=== PATIENT | female | born 1975 | race Caucasian/White ===

== ENCOUNTER → 2017-01-06 13:48 | Emergency (ER) | payer BC ==
[~2017-01-06 13:48] MED LIST: Ibuprofen TAB* 800 MG PO ONE; oxyCODONE/Acetamin 5/325 MG* TAB PO ONE
[2017-01-06 16:13] VITALS: BP 130/78
--- NOTE | 2017-01-06 18:23 | RAD ---
Indication: Right ankle injury. 3 views of the right ankle demonstrate soft tissue swelling laterally. Transverse fracture of the distal fibula is noted. Ankle mortise is intact. IMPRESSION: Fracture of the distal fibula.
--- NOTE | 2017-02-12 22:20 | ED ---
Lower Extremity - HPI Summary HPI Summary: Pt here w Rt ankle pain and swelling after tripping in the lawn today. Denies numbness, tingling, weakness but pain is significant with movement. No previous injury here. No other injuries as result of incident today. - History of Current Complaint Chief Complaint: EDExtremityLower Stated Complaint: RT ANKLE INJURY Time Seen by Provider: 01/06/17 16:49 Hx Obtained From: Patient Hx Last Menstrual Period: 05/05/16 Pain Intensity: 5 - Allergies/Home Medications Allergies/Adverse Reactions: Allergies Allergy/AdvReac Type Severity Reaction Status Date / Time Latex Allergy Mild Rash Verified 01/06/17 13:58 PMH/Surg Hx/FS Hx/Imm Hx Previously Healthy: Yes Endocrine/Hematology History: Denies: Hx Anticoagulant Therapy, Hx Blood Disorders, Hx Diabetes Cardiovascular History: Denies: Hx Hypertension, Hx Pacemaker/ICD Respiratory History: Denies: Hx Asthma Sensory History: Denies: Hx Hearing Aid Psychiatric History: Denies: Hx Panic Disorder Infectious Disease History: No Infectious Disease History: Denies: Traveled Outside the [place] in Last 30 Days - Family History Known Family History: Positive: Hypertension - Social History Lives: With Family Alcohol Use: Weekly Hx Substance Use: No Substance Use Type: Reports: None Hx Tobacco Use: No Smoking Status (MU): Never Smoked Tobacco Review of Systems Constitutional: Negative Musculoskeletal: Other - see HPI Positive: Bruising Neurological: Negative Psychological: Normal All Other Systems Reviewed And Are Negative: Yes Physical Exam Triage Information Reviewed: Yes Vital Signs On Initial Exam: Initial Vitals Temp Pulse Resp BP Pulse Ox 97.4 F 87 16 132/81 100 01/06/17 13:58 01/06/17 13:58 01/06/17 13:58 01/06/17 13:58 01/06/17 13:58 Vital Signs Reviewed: Yes Appearance: Positive: Well-Appearing, Pain Distress, Obese Skin: Positive: Warm, Dry - edema and mild ecchymosis over Rt lateral ankle -no terry tenting, no open skin Head/Face: Positive: Normal Head/Face Inspection Eyes: Positive: EOMI ENT: Positive: Hearing grossly normal Respiratory/Lung Sounds: Positive: Breath Sounds Present Cardiovascular: Positive: Pulses are Symmetrical in both Upper and Lower Extremities Musculoskeletal: Positive: Limited @ - Rt ankle w/ limited ROM d/t pain - can move toes but is painful; can move knee but limited d/t ankle pain Neurological: Positive: Normal, Sensory/Motor Intact, Alert, Oriented to Person Place, Time, CN Intact II-III Psychiatric: Positive: Anxious Procedures - Splinting Location: Rt LE Hand-Made Type: fiberglass Splint: posterior walking - with sugar tong Pre-Proc Neuro Vasc Exam: normal Post-Proc Neuro Vasc Exam: normal Diagnostics - Vital Signs Vital Signs Temp Pulse Resp BP Pulse Ox 01/06/17 19:52 18 01/06/17 18:36 16 01/06/17 16:10 98.7 F 87 16 130/78 100 01/06/17 13:58 97.4 F 87 16 132/81 100 - Laboratory Lab Statement: Any lab studies that have been ordered have been reviewed, and results considered in the medical decision making process. Re-Evaluation - Re-Evaluation First Eval Change: Unchanged Second Eval Change: Improved Lower Extremity Course/Dx - Diagnoses Provider Diagnoses: Closed fracture of distal end of right fibula Discharge - Discharge Plan Condition: Stable Disposition: HOME Prescriptions: oxyCODONE/Acetamin 5/325 MG* [Percocet 5/325 TAB*] 1 tab PO Q6H PRN #20 tab MDD 4 PRN Reason: Pain Patient Education Materials: Ankle Fracture (ED), Crutch Instructions (ED), Splint Care (ED) Forms: *Work Release Referrals: Mau Augustin MD [Medical Doctor] - Additional Instructions: Rest, ice, elevate Keep splint clean, dry and intact No weight bearing - use crutches Take ibuprofen 600mg every 6 hours with food alternating with percocet for pain Follow-up with orthopedics this week. Call tomorrow to schedule appointment. *If you develop numbness, discoloration of toes, severe pain, you may loosen SB wrap and elevate leg for 20 minutes - if no relief, return to ED
== END | disposition home or self-care (01) ==
LOC: ED 13:48
DX: S82.831A Other fracture of upper and lower end of right fibula, initial encounter for closed fracture (principal); M25.571 Pain in right ankle and joints of right foot; W01.0XXA Fall on same level from slipping, tripping and stumbling without subsequent striking against object, initial encounter; Y93.89 Activity, other specified; Y92.9 Unspecified place or not applicable
CPT/HCPCS: 99282; A9270-GY

== ENCOUNTER → 2019-06-04 14:08 | Day surgery (SDC) | payer BC ==
[~2019-06-04 14:08] MED LIST changes: +Acetaminophen IV 1GM/100ML * 100 ML ONE; +Buffered Lidocaine 1% SYRIN* 1 ML/SYRINGE INTRADERM ONE; +Bupivacaine 0.25% EPI 200,000* 30 ML SDV ONE; +Bupivacaine 0.5%* 50 ML MDV VIAL ONE; +Dexamethasone IV* 4 MG/ML 1 ML (4 MG) ONE; +DiMENhydriNATE IV* 50 MG/ML VIAL IV PUSH PRN; +HYDROmorphone INJ1* 1 MG/ML SYRINGE ONE; -Ibuprofen TAB* 800 MG PO ONE; +Ketorolac INJ* 30 MG/ML 1 ML VIAL ONE; +Lactated Ringers 1000 ML Bag* 1,000 ML IV SCH; +Metoclopramide IV* 5 MG/ML 2 ML VIAL ONE; +Midazolam* 1 MG/ML 2 ML VIAL (2 MG) ONE; +Naloxone* 0.4 MG/ML 1 ML VIAL IV PRN; +Ondansetron INJ* 2 MG/ML VIAL ONE; +Rocuronium* 10 MG/ML VIAL ONE; +ceFAZolin 2 GM in NS PREMIX(*) 2 GM/100 ML BAG IVPB ONE; +fentaNYL* 50 MCG/ML 2 ML VIAL (100 MCG VIAL) ONE; +oxyCODONE TAB* 5 MG TAB PO PRN; -oxyCODONE/Acetamin 5/325 MG* TAB PO ONE
--- NOTE | 2019-06-04 18:02 | OP ---
Operative Report - Blank - Operative Report Date of Operation: 06/04/19 Note: PATIENT: Ashia Frausto DATE OF : 1975 DATE OF SURGERY: 06/04/2019 SURGEON: John Granda MD MACHINE REPAIRER MAINTENANCE: LEONARDO Felix, whos assistance was necessary for positioning, retraction, help with instrumentation, and closure. ANESTHESIOLOGIST: Dr. Heart PREOPERATIVE DIAGNOSIS: Right ankle synovitis, peroneal tenosynovitis and ankle instability POSTOPERATIVE DIAGNOSIS: Right ankle synovitis, peroneal tenosynovitis and ankle instability OPERATION: 1. Right ankle arthroscopy with extensive debridement. 2. Right peroneal tendon exploration with peroneus longus and peroneus brevis tenolysis 3. Right ankle modified Brostrom procedure lateral ligament reconstruction. ANESTHESIA: General IMPLANTS: Arthrex fibertak suture anchors TOURNIQUET TIME: Less than 2 hours with a well-padded thigh tourniquet at 250mmHg SPECIMENS: none ESTIMATED BLOOD LOSS: minimal COMPLICATIONS: none STATUS: Stable from the operating room to the recovery room and then home. INDICATIONS FOR PROCEDURE: Ashia has recurrent ankle instability and pain despite extensive nonoperative treatment. Both operative and non operative treatment alternatives were reviewed. Further, the nature and risks of surgery were reviewed in careful detail, in the office as well as the pre-operative holding area. Our discussions regarding the risks of surgery included, but were not limited to, infection, wound problems, nerve injury, neuroma, RSD, persistent symptoms, blood clot, failure of the surgery, and even the remote chance of catastrophic complication. DESCRIPTION OF PROCEDURE: The patient was seen in the preoperative holding unit and informed written consent was obtained. The appropriate extremity was marked. The patient was then brought to the operating room and carefully positioned on the operating room table. Anesthesia was induced. All bony prominences were padded with great care. A well-padded thigh tourniquet was placed. A chlorhexidine based pre- scrub was performed followed by a chloraprep prep and drape in standard sterile fashion. A surgical safety pause was then conducted in which we confirmed the appropriate patient, extremity, planned procedure, availability of equipment, indication and administration of prophylactic antibiotics, and DVT prophylaxis in the form of a compression boot on the non-surgical extremity. An Esmarch exsanguination of the limb was then performed and the tourniquet inflated. The leg was positioned in the noninvasive ankle arthroscopy leg hatfield setup. I began by establishing the anteromedial portal. I utilized a spinal needle for this. Great care was taken to protect the superficial neurovascular structures. Under direct visualization, I then established an anterolateral portal. Great care was taken to protect the superficial peroneal nerve. I utilized the full radius shaver to remove a considerable amount of synovitis from the anterior aspect of the ankle joint. This was carefully removed to give a nice view of the ankle joint. There was some scar tissue at the lateral gutter that was debrided with the shaver. The cartilage looked good throughout the joint. I then again utilized the full radius shaver to remove all additional debris from the ankle joint. I removed the arthroscopic equipment and closed the portals utilizing 3-0 nylon suture. I then made an approximately 8 cm incision overlying the distal fibula. This was made in line with the distal fibula and then curving anteriorly in line with the fourth ray. Dissection was carried down through the soft tissues. Superficial hemostasis was obtained. I carried the dissection down through the soft tissue to the level of the periosteum and superior peroneal retinaculum ( SPR) with care taken to protect the sural nerve, which was not visualized during the procedure. I carefully incised the SPR off of the posterior fibula to expose the peroneal tendons. Dissection of the tendons was carried distally. The tendons were explored at this time for any tears. No discrete tears were appreciated but there was a large amount of inflamed tenosynovium and a tenolysis was performed for both the peroneus brevis and peroneus longus tendons. Additionally, there was a low-lying peroneus brevis muscle belly which was debrided and excised. At this point, I carefully inspected the peroneal groove at the posterior aspect of the fibula. This was deemed to have adequate depth so the decision was made not to perform a groove deepening procedure. So at this point I carefully planned out the repair of the superior peroneal retinaculum. I then reduced the tendons and they sat nicely in the retro-fibular groove. The wound was copiously irrigated. I repaired the SPR utilizing Arthrex fibertak suture anchor and #1 Vicryl suture. I was able to pass a [place] under the repaired SPR without difficulty after the repair. I then dissected anteriorly to expose the anterolateral ankle ligaments. We protected the superficial peroneal nerve at all times, which was not visualized within our field. Once we had adequately exposed a pocket anterior to the ligaments, we sharply took the ligaments down off of the anterior and distal aspect of the fibula using a 15 blade. The inferior extensor retinaculum was exposed and protected for subsequent repair later in the procedure. I then utilized a rongeur to make a trough along the fibula to receive the reconstructed ligaments. I then fibertak suture anchors in the fibula for a repair of the lateral ligaments. These sutures were all passed with great care taken to appropriately tension both the ATFL as well as the CFL in order to get a nice tight repair. We held the ankle in a dorsiflexed and everted position while the ligaments and sutures were tied down. These held the ankle in a much improved position with excellent tension on the ligaments. We then utilized a rotational flap from the periosteum overlying the distal fibula to augment the repair. This was sewn down using a horizontal mattress stich overlying the ATFL. We further augmented the repair by bringing the inferior extensor retinaculum up to the fibula. There was a much improved anterior drawer at this point as compared to pre-operatively. The wound was copiously irrigated. At this point, a sterile dressing was applied and the ankle was splinted in a neutral position. The patient was then awakened from anesthesia and transferred to the recovery room in stable condition. There were no complications. All needle and sponge counts were correct at the end of the case. ATTESTATION: I attest I was present and scrubbed and performed the critical portions of the procedure myself. POSTOPERATIVE PLAN: The patient will remain nonweightbearing for an anticipated duration of six weeks. Follow up will be in two weeks for likely suture removal , Steri-Strip application and transition into a short leg cast.
[2019-06-04] MEDS: HYDROmorphone INJ1* 1 MG/ML SYRINGE IV PRN ×3 (18:53→19:06)
[2019-06-04 21:22] VITALS: BP 134/78
== END | disposition home or self-care (01) ==
LOC: OR 14:08
PROVIDERS: ATTEND Orthopaedic Surgery
DX: M25.371 Other instability, right ankle (principal); M76.71 Peroneal tendinitis, right leg; M65.871 Other synovitis and tenosynovitis, right ankle and foot; Z87.891 Personal history of nicotine dependence; E66.9 Obesity, unspecified
CPT/HCPCS: C1713; J0690; J1100; J1170; J1885; J2250; J2405; J2765; J3010; J3490

== ENCOUNTER 2019-11-13 21:58 | Inpatient (IN) ==
[2019-11-13] MEDS ORDERED: fentaNYL 100 mcg/2 ml 50 MCG/ML VIAL IV SLOW PU ONE ×2 (23:47→23:52)
[2019-11-13] MEDS ORDERED: Ondansetron 4 mg VIAL 2 MG/ML 2 ml VIAL IV ONE (23:51)
[2019-11-14] MEDS ORDERED: NS 0.9% 1000 ml BAG 1,000 ML IV ONE (00:05)
[2019-11-14] MEDS ORDERED: fentaNYL 100 mcg/2 ml 50 MCG/ML VIAL IV SLOW PU ONE (00:55)
[2019-11-14] MEDS ORDERED: Midazolam 10 mg/10 ml VIAL 1 mg/ml 10 ml VIAL (10 mg) IV SLOW PU ONE (01:27)
[2019-11-14] MEDS ORDERED: fentaNYL 100 mcg/2 ml 50 MCG/ML VIAL ONE (01:30)
[2019-11-14] MEDS ORDERED: Midazolam 10 mg/10 ml VIAL 1 mg/ml 10 ml VIAL (10 mg) ONE (01:30)
[2019-11-14] MEDS ORDERED: MORPHINE 10 MG IV PRN (02:08)
[2019-11-14] MEDS ORDERED: Morphine 4 MG/ML VIAL (1 ml) IV PRN (02:20)
[2019-11-14 03:55] LABS: INR 0.99 (0.82-1.09)
[2019-11-14 04:05] LABS: Albumin 3.9 g/dL (3.2-5.2); Albumin/Globulin Ratio 1.6 (1-3); BUN/Creatinine Ratio 21.4 (8-20); C Reactive Protein 8.17 mg/L (<8.01); Calcium 8.5 mg/dL (8.6-10.3); EGFR Non-African American 90.1 (>60); Globulin 2.4 g/dL (2-4); Total Bilirubin 0.2 mg/dL (0.2-1.0); Total Protein 6.3 g/dL (6.4-8.9)
[2019-11-14] MEDS ORDERED: Enoxaparin 40 MG/0.4 ML SYR SUBCUT SCH (09:00)
[2019-11-14] MEDS: oxyCODONE/Acetamin 5/325 mg TAB PO PRN ×3 (09:24→22:55)
[2019-11-14] MEDS ORDERED: diPHENhydraMINE 25 mg TAB PO PRN (09:45)
[2019-11-14] MEDS: Ondansetron 4 mg VIAL 2 MG/ML 2 ml VIAL IV PRN (13:05)
[2019-11-15] MEDS: Ondansetron 4 mg VIAL 2 MG/ML 2 ml VIAL IV PRN (03:26)
[2019-11-15] MEDS ORDERED: Midazolam 5 mg/5 ml VIAL 1 mg/ml 5 ml VIAL (5 mg) ONE (08:06)
[2019-11-15] MEDS ORDERED: ceFAZolin 2 GM PREMIX 2 GM/50 ML BAG ONE (08:07)
[2019-11-15] MEDS ORDERED: fentaNYL 100 mcg/2 ml 50 MCG/ML VIAL ONE (08:16)
[2019-11-15] MEDS ORDERED: Midazolam 2 mg/2 ml VIAL 1 mg/ml 2 ml VIAL (2 mg) ONE (08:44)
[2019-11-15] MEDS ORDERED: Propofol 10 MG/ML 20 ML BTL ONE (08:44)
[2019-11-15] MEDS ORDERED: Ketamine HCL 50 mg/ml 10 ml VIAL (500 MG) ONE (08:45)
[2019-11-15] MEDS ORDERED: Ondansetron 4 mg VIAL 2 MG/ML 2 ml VIAL IV PRN (08:56)
[2019-11-15] MEDS ORDERED: fentaNYL 100 mcg/2 ml 50 MCG/ML VIAL IV PRN (08:56)
[2019-11-15] MEDS ORDERED: Naloxone 0.4 mg VIAL 0.4 mg/ml 1 ml VIAL IV PRN (08:56)
[2019-11-15] MEDS ORDERED: HYDROmorphone 1 MG/1 ML SYRINGE IV PRN (08:56)
[2019-11-15] MEDS ORDERED: NS 0.9% 1000 ml BAG 1,000 ML IV SCH (14:45)
[2019-11-15] MEDS ORDERED: Magnesium Hydroxide LIQ 30 ML UDC ONE (14:54)
[2019-11-15] MEDS: Magnesium Hydroxide LIQ 30 ML UDC PO SCH ×2 (14:55→20:51)
[2019-11-15] MEDS: oxyCODONE/Acetamin 5/325 mg TAB PO PRN ×2 (16:02→21:55)
[2019-11-15] MEDS: ceFAZolin 1 GM* X 3 DOSES POST-OP Q8H (AddVan) IVPB SCH (16:04)
[2019-11-16] MEDS: ceFAZolin 1 GM* X 3 DOSES POST-OP Q8H (AddVan) IVPB SCH ×2 (00:01→07:33)
[2019-11-16] MEDS: oxyCODONE/Acetamin 5/325 mg TAB PO PRN ×3 (03:35→15:58)
[2019-11-16] MEDS: Ondansetron 4 mg VIAL 2 MG/ML 2 ml VIAL IV PRN (05:09)
[2019-11-16] MEDS: Magnesium Hydroxide LIQ 30 ML UDC PO SCH ×2 (07:32→21:20)
[2019-11-16] MEDS: Heparin 5000 UNITS/ML 1 mL VIAL SUBCUT SCH ×2 (13:34→21:43)
[2019-11-16 15:21] LABS: ABS Eosinophils 0.2 10^3/ul (0-0.6); ABS Lymphocytes 1.8 10^3/ul (1.0-4.8); ABS Monocytes 0.4 10^3/ul (0-0.8); Eosinophil % 2.6 %; Hematocrit 34 % (35-47); Hemoglobin 11.2 g/dL (12.0-16.0); Lymphocyte % 24.9 %; Mean Corpuscular HGB Conc 34 g/dL (31-36); Mean Corpuscular Hemoglobin 29 pg (27-31); Mean Corpuscular Volume 87 fL (80-97); Mean Platelet Volume 8.5 fL (7.4-10.4); Platelet Count 226 10^3/uL (150-450); Red Blood Count 3.86 10^6 /uL (3.70-4.87); Red Cell Distribution Width 14 % (10-15); White Blood Count 7.3 10^3/uL (3.5-10.8)
[2019-11-16 15:28] LABS: Activated Partial Thrombo Time 30.6 seconds (26.0-38.0); INR 1.01 (0.82-1.09)
[2019-11-16 15:42] LABS: EGFR African American 82.6 (>60); EGFR Non-African American 68.3 (>60)
[2019-11-17] MEDS: Heparin 5000 UNITS/ML 1 mL VIAL SUBCUT SCH ×3 (05:40→22:03)
[2019-11-17] MEDS: Magnesium Hydroxide LIQ 30 ML UDC PO SCH ×2 (07:55→19:58)
[2019-11-17] MEDS: oxyCODONE/Acetamin 5/325 mg TAB PO PRN ×2 (09:40→23:48)
[2019-11-18] MEDS: oxyCODONE/Acetamin 5/325 mg TAB PO PRN (05:47)
[2019-11-18] MEDS: Heparin 5000 UNITS/ML 1 mL VIAL SUBCUT SCH (05:48)
[2019-11-18] MEDS: Magnesium Hydroxide LIQ 30 ML UDC PO SCH (08:21)
[2019-11-18 08:41] VITALS: BP 125/82
== END 2019-11-18 10:30 | DRG 313 ==
LOC: SSU 21:58 → ED 21:58 → OBSVTOIN 11-14 03:02
PROVIDERS: ADMIT Orthopaedic Surgery; ATTEND Orthopaedic Surgery

== ENCOUNTER 2019-11-18 08:33 | Inpatient (IN) ==
[2019-11-18] MEDS ORDERED: oxyCODONE/Acetamin 5/325 mg TAB PO PRN (13:01)
[2019-11-18] MEDS: oxyCODONE/Acetamin 5/325 mg TAB PO PRN ×2 (13:43→19:45)
[2019-11-18] MEDS: Heparin 5000 UNITS/ML VIAL(*) 1 ml vial SUBCUT SCH ×2 (14:55→22:09)
[2019-11-18] MEDS ORDERED: diPHENhydraMINE 25 mg TAB PO PRN (15:55)
[2019-11-18] MEDS ORDERED: oxyCODONE SR 20 mg TAB (*) PO ONE (22:30)
[2019-11-19] MEDS: oxyCODONE/Acetamin 5/325 mg TAB PO PRN ×6 (00:06→23:58)
[2019-11-19] MEDS: Enoxaparin 40 MG/0.4 ML SYR(*) SUBCUT SCH (07:49)
[2019-11-19] MEDS ORDERED: oxyCODONE SR 20 mg TAB (*) PO SCH (22:00)
[2019-11-20] MEDS: oxyCODONE/Acetamin 5/325 mg TAB PO PRN ×5 (04:47→21:42)
[2019-11-20 05:57] LABS: ABS Eosinophils 0.3 10^3/ul (0-0.6); ABS Lymphocytes 1.8 10^3/ul (1.0-4.8); ABS Monocytes 0.5 10^3/ul (0-0.8); Eosinophil % 4.9 %; Hematocrit 34 % (35-47); Hemoglobin 11.4 g/dL (12.0-16.0); Lymphocyte % 29.1 %; Mean Corpuscular HGB Conc 34 g/dL (31-36); Mean Corpuscular Hemoglobin 29 pg (27-31); Mean Corpuscular Volume 87 fL (80-97); Mean Platelet Volume 7.7 fL (7.4-10.4); Platelet Count 275 10^3/uL (150-450); Red Blood Count 3.91 10^6 /uL (3.70-4.87); Red Cell Distribution Width 14 % (10-15); White Blood Count 6.2 10^3/uL (3.5-10.8)
[2019-11-20 06:15] LABS: Albumin 3.5 g/dL (3.2-5.2); Albumin/Globulin Ratio 1.4 (1-3); BUN/Creatinine Ratio 17.6 (8-20); Calcium 8.9 mg/dL (8.6-10.3); EGFR African American 102.2 (>60); EGFR Non-African American 84.5 (>60); Globulin 2.5 g/dL (2-4); Potassium 4.1 mmol/L (3.5-5.0); Total Bilirubin 0.3 mg/dL (0.2-1.0)
[2019-11-20] MEDS: Enoxaparin 40 MG/0.4 ML SYR(*) SUBCUT SCH (08:33)
[2019-11-20] MEDS: oxyCODONE SR 20 mg TAB (*) PO SCH ×2 (10:50→21:39)
[2019-11-20] MEDS: Magnesium Hydroxide LIQ 30 ML UDC PO PRN ×2 (12:28→20:27)
[2019-11-20] MEDS: Senna TAB 8.6 mg TAB PO PRN (20:27)
[2019-11-21] MEDS: oxyCODONE/Acetamin 5/325 mg TAB PO PRN ×4 (02:59→18:26)
[2019-11-21] MEDS: Enoxaparin 40 MG/0.4 ML SYR(*) SUBCUT SCH (08:47)
[2019-11-21] MEDS: oxyCODONE SR 20 mg TAB (*) PO SCH ×2 (08:49→21:26)
[2019-11-22] MEDS: oxyCODONE/Acetamin 5/325 mg TAB PO PRN ×6 (00:01→22:11)
[2019-11-22 06:32] LABS: Albumin 3.7 g/dL (3.2-5.2); Albumin/Globulin Ratio 1.4 (1-3); BUN/Creatinine Ratio 20.8 (8-20); Calcium 9.1 mg/dL (8.6-10.3); EGFR African American 105.5 (>60); EGFR Non-African American 87.2 (>60); Globulin 2.6 g/dL (2-4); Potassium 3.8 mmol/L (3.5-5.0); Total Bilirubin 0.4 mg/dL (0.2-1.0); Total Protein 6.3 g/dL (6.4-8.9)
[2019-11-22] MEDS: oxyCODONE SR 20 mg TAB (*) PO SCH ×2 (08:20→21:03)
[2019-11-22] MEDS: Enoxaparin 40 MG/0.4 ML SYR(*) SUBCUT SCH (08:21)
[2019-11-22] MEDS: Magnesium Hydroxide LIQ 30 ML UDC PO PRN (08:30)
[2019-11-22] MEDS: Bacitracin OINTMENT TUBE TOPICAL SCH ×2 (13:02→21:05)
[2019-11-22] MEDS: Senna TAB 8.6 mg TAB PO PRN (21:03)
[2019-11-23] MEDS: oxyCODONE/Acetamin 5/325 mg TAB PO PRN ×5 (05:12→23:30)
[2019-11-23] MEDS: Enoxaparin 40 MG/0.4 ML SYR(*) SUBCUT SCH (08:22)
[2019-11-23] MEDS: oxyCODONE SR 20 mg TAB (*) PO SCH ×2 (08:23→21:00)
[2019-11-23] MEDS: Bacitracin OINTMENT TUBE TOPICAL SCH ×2 (14:11→21:02)
[2019-11-23] MEDS: Senna TAB 8.6 mg TAB PO PRN (21:01)
[2019-11-24] MEDS: oxyCODONE/Acetamin 5/325 mg TAB PO PRN ×5 (06:00→22:31)
[2019-11-24] MEDS: oxyCODONE SR 20 mg TAB (*) PO SCH ×2 (08:37→20:50)
[2019-11-24] MEDS: Enoxaparin 40 MG/0.4 ML SYR(*) SUBCUT SCH (08:38)
[2019-11-24] MEDS: Bacitracin OINTMENT TUBE TOPICAL SCH ×2 (10:21→20:51)
[2019-11-24] MEDS ORDERED: Magnesium Sulfate CRYSTAL 454 GM BOX TOPICAL PRN (10:47)
[2019-11-24] MEDS ORDERED: Lidocaine 1% MPF 5 ML VIAL INJ ONE (13:57)
[2019-11-24] MEDS: Senna TAB 8.6 mg TAB PO PRN (20:50)
[2019-11-25] MEDS: oxyCODONE/Acetamin 5/325 mg TAB PO PRN ×3 (02:41→11:58)
[2019-11-25 06:41] VITALS: BP 116/78
[2019-11-25] MEDS: Enoxaparin 40 MG/0.4 ML SYR(*) SUBCUT SCH (09:39)
[2019-11-25] MEDS: Bacitracin OINTMENT TUBE TOPICAL SCH (09:42)
[2019-11-25] MEDS: oxyCODONE SR 20 mg TAB (*) PO SCH (09:45)
== END 2019-11-25 14:10 | disposition home or self-care (01) | DRG 860 ==
LOC: PMRU 11:01
PROVIDERS: ADMIT Physical Medicine & Rehabilitation; ATTEND Physical Medicine & Rehabilitation